=== PATIENT | female | born 1945 | race Caucasian/White ===

== ENCOUNTER → 2017-10-13 12:18 | Outpatient (CLI) | payer MEDICARE ==
[2014-11-13 08:22] VITALS: BMI 23.6
[~2017-10-13 12:18] MED LIST: ADVAIR 250/501 DISK INH; CITRACAL + D E1 EACH PO; CRESTOR5 MG PO; DEMEROL50 MG PO; EFFEXOR37.5 MG PO; FISH OIL 1,0001 CA1 PO; GLIPIZIDE10 MG PO; MULTIPLE VITAMI1 TA1 PO; NEURONTIN 300300 MG PO; PEPCID20 MG PO; PROAIR HFA8.5 GM INH; XANAX2 MG PO
== END | disposition home or self-care (01) ==
LOC: D.CT 12:18
DX: K57.30 Diverticulosis of large intestine without perforation or abscess without bleeding (principal)

== ENCOUNTER 2017-12-23 21:06 | Emergency (ER) | payer MEDICARE ==
[~2017-12-23] VITALS: Ht 165.1 cm; Wt 59.5 kg
[2017-12-23 21:28] VITALS: Ht 165.1 cm; Wt 59.5 kg
[2017-12-24] MEDS ORDERED: MUPIROCIN22 GM TOPICAL (00:41)
[2017-12-24] MEDS ORDERED: VOLTAREN75 MG PO (00:41)
[2017-12-24 00:57] VITALS: BP 128/77
== END 2017-12-24 00:57 | disposition home or self-care (01) ==
LOC: D.ER 21:06
DX: S51.012A Laceration without foreign body of left elbow, initial encounter (principal); W18.30XA Fall on same level, unspecified, initial encounter; Y93.89 Activity, other specified; Y92.019 Unspecified place in single-family (private) house as the place of occurrence of the external cause; S89.92XA Unspecified injury of left lower leg, initial encounter; E11.9 Type 2 diabetes mellitus without complications; J44.9 Chronic obstructive pulmonary disease, unspecified; F17.200 Nicotine dependence, unspecified, uncomplicated

== ENCOUNTER 2018-07-28 19:00 | Outpatient (CLI) | payer MEDICARE ==
[2017-12-23 21:28] VITALS: BMI 21.8
[~2018-07-28 19:00] MED LIST changes: +MUPIROCIN22 GM TOPICAL; +VOLTAREN75 MG PO
== END 2018-07-28 23:59 | disposition home or self-care (01) ==
LOC: D.MAMMO 19:00
PROVIDERS: ATTEND Family Medicine
DX: Z12.31 Encounter for screening mammogram for malignant neoplasm of breast (principal)

== ENCOUNTER → 2019-05-08 12:49 | Outpatient (CLI) | payer MEDICARE ==
[~2019-05-08] VITALS: Ht 165.1 cm; Wt 59.4 kg
[2019-05-08 14:49] VITALS: Ht 165.1 cm; Wt 59.4 kg
== END | disposition home or self-care (01) ==
LOC: D.FANS 12:49
PROVIDERS: ATTEND Family Medicine
DX: E11.9 Type 2 diabetes mellitus without complications (principal)

== ENCOUNTER 2020-10-02 10:33 | Emergency (ER) | payer MEDICARE ==
[~2020-10-02] VITALS: Ht 165.1 cm; Wt 59.1 kg
[~2020-10-02 10:33] MED LIST changes: +BASAGLAR K100 UNIT/1 SC; +EFFEXOR75 MG PO; +GLUCOPHAGE1000 MG PO; +LIPITOR40 MG PO; +NEURONTIN600 MG PO; +OMEPRAZOLE20 M1 PO; +PEPCID AC20 MG PO; +TERBINAFINE HC250 MG PO; +XANAX1 MG PO
[2020-10-02 10:51] VITALS: Ht 165.1 cm; Wt 59.1 kg
[2020-10-02 11:29] LABS: BASOPHILS 1.1 % (0-2); EOSINOPHILS 4.4 % (0-7); HEMATOCRIT 41.1 % (36.0-48.0); HEMOGLOBIN 13.4 g/dL (12-16); LYMPHOCYTES 28.6 % (15-50); MCH 30.5 pg (26.0-34.0); MCHC 32.5 g/dL (31.0-37.0); MCV 93.8 fL (80.0-100.0); MEAN PLATELET VOLUME 8.5 fL (7.4-10.4); MONOCYTES 7.3 % (2-11); NEUTROPHILS 58.6 % (40-80); PLATELET COUNT 274 10x3/uL (130-400); RBC 4.38 10x6/uL (4.00-5.40); RDW 13.6 % (11.5-14.5); WBC 9.7 10x3/uL (4.8-10.8)
[2020-10-02 11:47] LABS: ANION GAP 12.4 mmol/L (8-16); CALCIUM 9.8 mg/dL (8.5-10.1); CARBON DIOXIDE 28.6 mmol/L (21.0-32.0); CREATININE - SERUM 1.2 mg/dL (0.6-1.3)
[2020-10-02 11:53] LABS: ALBUMIN 3.7 g/dL (3.4-5.0); BILIRUBIN - TOTAL 0.31 mg/dL (0.2-1.3); PROTEIN - SERUM 6.6 g/dL (6.4-8.2)
[2020-10-02 13:10] LABS: BILIRUBIN NEGATIVE (NEGATIVE); KETONE NEGATIVE (NEGATIVE); NITRITE POSITIVE (NEGATIVE); UROBILINOGEN NORMAL mg/dL (< 2)
[2020-10-02 13:12] LABS: BACTERIA MANY HPF (NONE SEEN); WHITE CELLS - URINE 10 HPF (0-4)
[2020-10-02 14:47] VITALS: BP 125/60
== END 2020-10-02 14:53 | disposition home or self-care (01) ==
LOC: D.ER 10:33
PROVIDERS: Emergency Medicine
DX: N39.0 Urinary tract infection, site not specified (principal); E11.9 Type 2 diabetes mellitus without complications; E78.5 Hyperlipidemia, unspecified; K21.9 Gastro-esophageal reflux disease without esophagitis; Z79.84 Long term (current) use of oral hypoglycemic drugs